=== PATIENT | female | born 1990 | race Caucasian/White ===

== ENCOUNTER 2016-09-03 07:05 | Inpatient (IN) | payer BC ==
[~2016-09-03] VITALS: Ht 170.2 cm; Wt 87.7 kg
[2016-09-03 07:12] VITALS: BP 116/75
[2016-09-03] MEDS ORDERED: OXYTOCIN 30U/ 0.9% NaCL 500ML 500 ML IV SCH (07:41)
[2016-09-03] MEDS ORDERED: LACTATED RINGERS 1,000 ML IV SCH ×2 (07:41→08:00)
[2016-09-03] MEDS ORDERED: LACTATED RINGERS 1,000 ML IVBOLUS ONE (08:00)
[2016-09-03] MEDS ORDERED: SODIUM CITRATE/CITRIC ACID 30 ML UDC PO ONE (08:00)
[2016-09-03] MEDS ORDERED: METOCLOPRAMIDE 5 MG/ML, 2ML IV ONE (08:00)
[2016-09-03] MEDS ORDERED: OXYTOCIN 30U/ 0.9% NaCL 500ML 0 ML ONE (08:07)
[2016-09-03] MEDS ORDERED: METOCLOPRAMIDE 5 MG/ML, 2ML ONE (08:44)
[2016-09-03] MEDS ORDERED: SODIUM CITRATE/CITRIC ACID 30 ML UDC ONE (08:44)
[2016-09-03] MEDS ORDERED: NEWBORN KIT ONE (08:44)
[2016-09-03] MEDS ORDERED: HYDROmorphone 2 MG/ML, 1ML ONE (09:23)
[2016-09-03] MEDS ORDERED: FENTANYL PF 100 MCG/2ML ONE (09:23)
[2016-09-03] MEDS ORDERED: CEFAZOLIN 1,000 MG ONE (09:40)
[2016-09-03] MEDS ORDERED: KETOROLAC 30 MG/1 ML ONE ×2 (09:40)
[2016-09-03] MEDS ORDERED: ONDANSETRON 2MG/ML, 2ML ONE ×2 (09:40)
[2016-09-03] MEDS: LACTATED RINGERS 1,000 ML IV SCH ×4 (10:46→20:46)
[2016-09-03] MEDS: OXYTOCIN 30U/ 0.9% NaCL 500ML 500 ML IV SCH ×2 (10:46→20:46)
[2016-09-03] MEDS ORDERED: OXYTOCIN 30U/ 0.9% NaCL 500ML 500 ML ONE (10:59)
[2016-09-03] MEDS ORDERED: ACETAMINOPHEN 325 MG TABLET PO PRN (11:00)
[2016-09-03] MEDS ORDERED: METHYLERGONOVINE 0.2 MG/ML IM PRN (11:00)
[2016-09-03] MEDS ORDERED: MISOPROSTOL 200 MCG TABLET PR PRN (11:00)
[2016-09-03] MEDS ORDERED: CARBOPROST TROMETHAMINE 250 MCG/ML, 1ML IM PRN (11:00)
[2016-09-03] MEDS ORDERED: BUTORPHANOL 1 MG/ML, 1ML IV PRN (11:00)
[2016-09-03] MEDS ORDERED: DIPH,PERTUSS(ACELL),TET VAC/PF NC IM-VACC PRN (11:00)
[2016-09-03] MEDS ORDERED: MEPERIDINE 50 MG TABLET PO PRN ×2 (11:00)
[2016-09-03] MEDS ORDERED: BISACODYL 10 MG SUPP PR PRN (11:00)
[2016-09-03] MEDS ORDERED: MEPERIDINE/PF 25MG/0.5ML IM PRN (11:00)
[2016-09-03] MEDS ORDERED: ONDANSETRON 2MG/ML, 2ML IV PRN (11:00)
[2016-09-03] MEDS ORDERED: MEPERIDINE/PF 50 MG/ML IVPush PRN (11:00)
[2016-09-03] MEDS ORDERED: MEASLES,MUMPS&RUBELLA VACC/PF 0.5 ML SQ-VACC PRN (11:00)
[2016-09-03 13:15] VITALS: BP 114/73
[2016-09-03 14:15] VITALS: BP 112/67
[2016-09-03] MEDS: KETOROLAC 30 MG/1 ML IV SCH ×3 (16:40→23:56)
[2016-09-03 19:26] VITALS: BP 107/70
[2016-09-03 23:38] VITALS: BP 107/67
[2016-09-04] MEDS: LACTATED RINGERS 1,000 ML IV SCH ×3 (02:46→10:46)
[2016-09-04 04:53] VITALS: BP 117/71
[2016-09-04] MEDS: KETOROLAC 30 MG/1 ML IV SCH ×4 (05:23→23:27)
[2016-09-04 06:10] VITALS: BP 109/70
[2016-09-04] MEDS: OXYTOCIN 30U/ 0.9% NaCL 500ML 500 ML IV SCH (06:46)
[2016-09-04] MEDS: PRENATAL VIT/IRON/FA 1 EACH TABLET PO SCH (11:42)
[2016-09-04] MEDS: DOCUSATE 100 MG CAPSULE PO PRN (11:42)
[2016-09-04 19:38] VITALS: BP 112/69
[2016-09-05 00:03] VITALS: BP 109/69
[2016-09-05] MEDS: KETOROLAC 30 MG/1 ML IV SCH (05:28)
[2016-09-05] MEDS: DOCUSATE 100 MG CAPSULE PO PRN (08:00)
[2016-09-05] MEDS: PRENATAL VIT/IRON/FA 1 EACH TABLET PO SCH (08:00)
[2016-09-05 08:08] VITALS: BP 107/70
[2016-09-05] MEDS: IBUPROFEN 600 MG TABLET PO PRN ×2 (12:42→18:44)
[2016-09-05 19:12] VITALS: BP 110/74
[2016-09-06] MEDS: DOCUSATE 100 MG CAPSULE PO PRN ×2 (00:57→08:38)
[2016-09-06] MEDS: IBUPROFEN 600 MG TABLET PO PRN ×2 (00:57→08:38)
[2016-09-06 08:32] VITALS: BP 119/72
[2016-09-06] MEDS: PRENATAL VIT/IRON/FA 1 EACH TABLET PO SCH (08:38)
[2016-09-06] MEDS ORDERED: IBUP-1222 PO (12:28)
[2016-09-06] MEDS ORDERED: PREN1TAB28 PO (12:28)
[2016-09-06] MEDS ORDERED: DOCU-30 PO (12:29)
[2016-09-06] MEDS ORDERED: OXYC-302 PO (12:29)
== END 2016-09-06 17:40 | disposition home or self-care (01) | DRG 766 ==
LOC: LDOP 07:05 → LDIP 07:45 → 2NW 13:11
PROVIDERS: ADMIT Family Medicine; ATTEND Obstetrics & Gynecology Gynecology
PROC: 10D00Z1 Extraction of Products of Conception, Low, Open Approach (ICD-10-PCS; principal; 2016-09-03)
DX: O34.219 Maternal care for unspecified type scar from previous cesarean delivery (principal); Z37.0 Single live birth; Z87.442 Personal history of urinary calculi; Z3A.38 38 weeks gestation of pregnancy
CPT/HCPCS: 36415; 85025; 86850; 86900; J0690; J1170; J1885; J2405; J3010; J2590; J2765; J7120

== ENCOUNTER 2017-03-02 14:09 | Inpatient (IN) | payer BC ==
[~2017-03-02] VITALS: Ht 170.2 cm; Wt 77.3 kg
[~2017-03-02 14:09] MED LIST: DOCU-131 PO; IBUP-1222 PO; OXYC-302 PO; PREN1TAB28 PO
[2017-03-02] MEDS ORDERED: ONDANSETRON 2MG/ML, 2ML ONE ×3 (14:40→17:52)
[2017-03-02] MEDS ORDERED: morphine SULFATE 10 MG/ML, 1ML ONE (14:40)
[2017-03-02] MEDS ORDERED: ONDANSETRON 2MG/ML, 2ML IVPush ONE (15:00)
[2017-03-02] MEDS ORDERED: KETOROLAC 30 MG/1 ML IVPush ONE (15:00)
[2017-03-02] MEDS ORDERED: SODIUM CHLORIDE FLUSH 10ML SYR IVF ONE (15:00)
[2017-03-02] MEDS ORDERED: SODIUM CHLORIDE 0.9% 1,000ML IVBOLUS ONE (15:00)
[2017-03-02] MEDS ORDERED: KETOROLAC 30 MG/1 ML ONE (15:24)
[2017-03-02 15:32] LABS: HEMATOCRIT 43.4 % (34.6-47.8); HEMOGLOBIN 14.5 g/dL (11.7-16.4)
[2017-03-02 15:43] LABS: ASPARTATE AMINO TRANSFERASE 11 U/L (15-37); BLOOD UREA NITROGEN 10 mg/dL (7-18)
[2017-03-02 16:30] LABS: PATH.CAST-FLAG NOT PRESENT; SPERM-FLAG NOT PRESENT; SRC-FLAG NOT PRESENT; XTAL-FLAG NOT PRESENT; YLC-FLAG NOT PRESENT
[2017-03-02] MEDS ORDERED: CEFTRIAXONE PMX 1GM/50ML 50 ML IV ONE (17:00)
[2017-03-02] MEDS ORDERED: FENTANYL PF 100 MCG/2ML ONE ×2 (17:33→18:38)
[2017-03-02] MEDS ORDERED: MIDAZOLAM 1 MG/ML, 2ML ONE (17:33)
[2017-03-02] MEDS ORDERED: PROPOFOL 10 MG/ML, 20ML ONE (17:52)
[2017-03-02] MEDS ORDERED: SUCCINYLCHOLINE 20 MG/ML, 10ML ONE (17:52)
[2017-03-02] MEDS ORDERED: CEFOTETAN 1 GM ONE (17:52)
[2017-03-02] MEDS ORDERED: DEXAMETHASONE 4 MG/ML, 1ML ONE (17:52)
[2017-03-02] MEDS ORDERED: ROCURONIUM 10 MG/ML ONE (17:52)
[2017-03-02] MEDS ORDERED: SODIUM CHLORIDE 0.9% 1,000 ML IV ONE (18:00)
[2017-03-02] MEDS ORDERED: OMNIPAQUE 350 MG/ML, 50 ML BOTTLE ONE (18:30)
[2017-03-02] MEDS ORDERED: ACETAMINOPHEN 650 MG/20.3 ML UDC ONE (18:38)
[2017-03-02] MEDS ORDERED: OXYcodone 5 MG/5 ML ORAL.SOL UDC ONE (18:38)
[2017-03-02] MEDS: FENTANYL PF 100 MCG/2ML IV PRN ×2 (18:54→19:05)
[2017-03-02] MEDS ORDERED: ACETAMINOPHEN 325 MG TABLET PO PRN (19:00)
[2017-03-02] MEDS ORDERED: LABETALOL 5MG/ML, 20ML IV PRN (19:00)
[2017-03-02] MEDS ORDERED: HYDROmorphone 1 MG/ML, 1ML IV PRN (19:00)
[2017-03-02] MEDS ORDERED: hydrALAzine 20 MG/ML, 1ML IV PRN (19:00)
[2017-03-02] MEDS ORDERED: ONDANSETRON 2MG/ML, 2ML IVPush PRN (19:00)
[2017-03-02] MEDS ORDERED: OXYcodone 5 MG/5 ML ORAL.SOL UDC PO PRN (19:00)
[2017-03-02 19:45] VITALS: BP 103/55
[2017-03-02] MEDS ORDERED: ONDANSETRON 2MG/ML, 2ML IV PRN (20:30)
[2017-03-02] MEDS ORDERED: DIPHENHYDRAMINE 25 MG CAPSULE PO PRN (20:30)
[2017-03-02] MEDS ORDERED: KETOROLAC 10MG TABLET PO PRN (20:30)
[2017-03-02] MEDS ORDERED: morphine SULFATE 10 MG/ML, 1ML IV PRN (20:30)
[2017-03-02] MEDS: CEFTRIAXONE PMX 1GM/50ML 50 ML IV SCH (21:06)
[2017-03-02] MEDS: LACTATED RINGERS 1,000 ML IV SCH (21:06)
[2017-03-03 00:17] VITALS: BP 97/64
[2017-03-03] MEDS: ACETAMINOPHEN 325 MG TABLET PO PRN ×2 (02:01→09:09)
[2017-03-03 03:22] VITALS: BP 92/59
[2017-03-03] MEDS: LACTATED RINGERS 1,000 ML IV SCH ×2 (05:29→16:15)
[2017-03-03 06:17] LABS: HEMATOCRIT 39.7 % (34.6-47.8); HEMOGLOBIN 13.2 g/dL (11.7-16.4); WHITE BLOOD COUNT 11.8 x10^3/uL (3.4-10)
[2017-03-03 06:27] LABS: BLOOD UREA NITROGEN 9 mg/dL (7-18)
[2017-03-03 08:30] VITALS: BP 109/59
[2017-03-03 14:30] VITALS: BP 104/65
[2017-03-03] MEDS ORDERED: HYDROcodone/APAP 5/325 TABLET PO PRN (15:30)
[2017-03-03] MEDS: ASA/APAP/ CAFFEINE TABLET PO PRN ×2 (16:28→20:47)
[2017-03-03 18:16] VITALS: BP 99/62
[2017-03-03] MEDS: CEFTRIAXONE PMX 1GM/50ML 50 ML IV SCH (20:47)
[2017-03-04 00:34] VITALS: BP 105/60
[2017-03-04] MEDS: LACTATED RINGERS 1,000 ML IV SCH ×2 (01:23→09:14)
[2017-03-04 05:01] LABS: BLOOD UREA NITROGEN 6 mg/dL (7-18)
[2017-03-04 05:13] LABS: HEMOGLOBIN 12.6 g/dL (11.7-16.4)
[2017-03-04 07:15] VITALS: BP 100/63
[2017-03-04 11:25] VITALS: BP 97/62
[2017-03-04 14:35] VITALS: BP 107/67
[2017-03-04] MEDS ORDERED: ceftin PO (14:54)
[2017-03-04] MEDS ORDERED: HYDR-3240 PO (14:55)
== END 2017-03-04 15:05 | disposition home or self-care (01) | DRG 690 ==
LOC: ED 16:07 → EDIP 17:15 → 4NOR 19:45 → DCLOUNGE 03-04 14:51
PROVIDERS: ADMIT Urology; ATTEND Urology
PROC: 0T768DZ Dilation of Right Ureter with Intraluminal Device, Via Natural or Artificial Opening Endoscopic (ICD-10-PCS; principal; 2017-03-02 18:00)
DX: N30.91 Cystitis, unspecified with hematuria (principal); Q61.5 Medullary cystic kidney; N13.6 Pyonephrosis; K80.20 Calculus of gallbladder without cholecystitis without obstruction; R39.11 Hesitancy of micturition; Z87.442 Personal history of urinary calculi
CPT/HCPCS: 36415; 74000; 74420; 76700; 80048; 80053; 81001; 83690; 84703; 85025; 87077; 87086; 87186; 96361; 96365; 96375; J0696; J1100; J1885; J2250; J2405; J2704; J3010; Q9967; C2617; J0330; J7030; J7120; S0074